=== PATIENT | male | born 1975 | race Caucasian/White ===

== ENCOUNTER → 2021-04-05 | Outpatient (CLI) | payer OTHER ==
[~2021-04-05] MED LIST: ATOR20TA58 PO; CELE100C PO
== END ==
LOC: LAB 14:08
PROVIDERS: ATTEND Surgery
DX: Z01.812 Encounter for preprocedural laboratory examination (principal); Z20.822 Contact with and (suspected) exposure to COVID-19; M79.89 Other specified soft tissue disorders
CPT/HCPCS: U0003

== ENCOUNTER → 2021-04-10 | Day surgery (SDC) | payer OTHER ==
[~2021-04-10] MED LIST changes: +BUPIVACAINE-EPI 0.25%-1:200000 MPF 30 ML VIAL. ONE; +LIDOCAINE 1%/EPI 1:100,000 20 ML VIAL. ONE
[2021-04-10 07:47] VITALS: BP 144/77
--- NOTE | 2021-04-10 09:16 | PDOC4 ---
Operative Report DATE April 102020 at 913 Preop Diagnosis Left elbow mass, left shoulder mass, chest mass Post-op Diagnosis Same Operation Performed Excision of masses left arm shoulder and chest Patient is a 45-year-old male with complaints of a large masses on his center chest left shoulder and left elbow area. Procedure of excision of mass was explained to patient detail was benefits were also discussed including bleeding infection alternatives to this procedure also discussed with patient who seemed to understand and gave a verbal written consent to procedure performed. Patient was taken to the minors room placed in supine position area over the mass was was prepped and draped usual sterile fashion using ChloraPrep. First mass of the chest was in injected with quarter percent Marcaine with epinephrine once this anesthetized and incision was made with 15 blade scalpel and a lipomatous mass was removed sharply with Metzenbaum scissors 2 cm with 1 cm margin. Wound was closed with 4-0 subcuticular Monocryl. Attention was returned to the elbow mass area was injected with quarter percent Marcaine with epinephrine incision made 15 blade scalpel and the mass was excised sharply with Metzenbaum scissors mass size 1.5 cm and the wound was closed with 4 subcuticular Monocryl. Attention was then turned to the shoulder mass area was injected with quarter percent Marcaine with epinephrine incision made 15 blade scalpel and the mass was excised sharply with Metzenbaum scissors mass size was 1.0 cm 1 cm margin. Wound was closed with 4 subcuticular Monocryl. All wounds were dressed with Dermabond. Patient tolerated procedure well was discharged home in stable condi tion all sponge instrument needle counts listed as correct estimated blood loss 5 mL Surgeon Cornel ANESTHESIA PROPOSED: LOCAL Blood Loss 5 mL Specimen Chest mass 2 cm, shoulder mass 1 cm, elbow mass 1.5 cm Complications None IDALMIS CESPEDES MD Apr 10, 2021 09:16
--- NOTE | 2021-04-10 09:18 | DISCH ---
DISCHARGE INSTRUCTIONS-DC Condition on Discharge Condition on Discharge: Stable Activity after Discharge Activity Instructions for Disc: Resume previous activity Diet after Discharge Diet after Discharge: Regular Wound/Incision Care Other wound/incision instructi: Tana shower in 24 hours Contacting the after DC Call your doctor for: If your condition worsens Follow-Up Follow up with: Dr. Cespedes in 2 weeks IDALMIS CESPEDES MD Apr 10, 2021 09:18
--- NOTE | 2021-04-15 08:12 | PATHOLOGY ---
[facility] Accession Number: [id number] . 01 Material submitted: . PART A: chest - CHEST MASS PART B: elbow - LEFT ELBOW MASS. Modifiers: left PART C: shoulder - LEFT SHOULDER MASS. Modifiers: left . 01 Clinical history: . SUBCUTANEOUS MASSES . 02 Diagnosis: A. Fibroadipose tissue, chest mass excision: - Lipoma. . B. Fibroadipose tissue, left elbow mass excision: - Lipoma. . C. Fibroadipose tissue, left shoulder mass excision: - Angiolipoma. . (JPM:ayaz; 04/12/2021) [facility] 04/12/2021 1600 Local . 02 Comment: There is no evidence of malignancy. (KELSIM:ayaz; 04/12/2021) . 02 Electronically signed: . Maurice Diane MD, Pathologist NPI- [id number] . 01 Gross description: . A. Fixative: Formalin Labeled: Chest mass Specimen received: Intact light herron-yellow smooth to roughened lobulated tissue Dimensions: 2.6 x 1.4 x 1.0 cm External surface: Light herron-yellow and smooth to roughened Cut surface: Light herron-yellow . Stucco Plasterer sections are submitted in A1. . B. Fixative: Formalin Labeled: Elbow mass (left) Specimen received: Intact light herron-yellow lobulated tissue, smooth Dimensions: 1.8 x 1.7 x 0.8 cm External surface: Light herron-yellow and smooth Cut surface: Light herron-yellow . Stucco Plasterer sections are submitted in B1. . C. Fixative: Formalin Labeled: Left shoulder mass Specimen received: Intact, light herron-brown lobulated tissue Dimensions: 1.5 x 1.2 x 0.8 cm External surface: Light herron-brown and smooth Cut surface: Light herron-yellow . Stucco Plasterer sections are submitted in C1. ([facility]; 04/11/2021) [facility] 04/12/2021 1559 Local . 02 Pathologist provided ICD-10: D17.1, D17.22 . 02 CPT . 151353, 109938, 149067 Specimen Comment: A courtesy copy of this report has been sent to [phone], [phone] Specimen Comment: [id number] Specimen Comment: Report sent to / DR GALLO Specimen Comment: A duplicate report has been generated due to demographic updates. Performed at: 01 [facility] [address], [place] [id number] MD Zafar Cruz MD Phone: [phone] Performed at: 02 [facility] [address] [place], [place] [id number] MD Maurice Diane MD Phone: [phone]
== END | disposition home or self-care (01) ==
LOC: SURG 07:34
PROVIDERS: ATTEND Surgery
DX: R22.2 Localized swelling, mass and lump, trunk (principal); R22.32 Localized swelling, mass and lump, left upper limb; D17.1 Benign lipomatous neoplasm of skin and subcutaneous tissue of trunk; D17.22 Benign lipomatous neoplasm of skin and subcutaneous tissue of left arm; E78.00 Pure hypercholesterolemia, unspecified; Z79.899 Other long term (current) drug therapy; Z72.89 Other problems related to lifestyle; Z98.890 Other specified postprocedural states
CPT/HCPCS: 21601; 23075; 24075; J3490; 88304